=== PATIENT | male | born 1990 | race Caucasian/White ===

== ENCOUNTER → 2022-02-26 10:01 | Outpatient (BNVA) | payer BC, SELFPAY | PROVIDERS: Visit Provider Emergency Medicine | DX: R68.89 Other general symptoms and signs (principal); G47.30 Sleep apnea, unspecified; Z86.79 Personal history of other diseases of the circulatory system; I49.2 Junctional premature depolarization; I95.1 Orthostatic hypotension | CPT/HCPCS: 87400 ==